=== PATIENT | female | born 1960 | race Caucasian/White ===

== ENCOUNTER 2017-04-16 09:56 | Observation (INO) | payer BC ==
[~2017-04-16] VITALS: Ht 162.6 cm; Wt 72.6 kg
[~2017-04-16 09:56] MED LIST: DARVOCET N 101 UDTAB PO; FLUOXETINE; LISINOPRIL20 MG PO; NORCO 325 MG-7.1 TAB PO; PERCOCET 5/321 UDTAB PO; PRINZIDE 25 MG-1 TAB PO; PROZAC40 MG PO
[2017-04-16] MEDS ORDERED: LIPITOR20 MG PO (10:08)
[2017-04-16] MEDS ORDERED: ATIVAN 0.50.5 MG/TAB PO (10:08)
[2017-04-16] MEDS ORDERED: MOBIC15 MG PO (10:09)
[2017-04-16 11:22] LABS: BASO % 0.7 % (0.0-2.0); EOS # 0.3 (0.0-0.7); EOS % 5.8 % (0-4.0); GRAN % 52.5 % (42.2-75.2); HEMATOCRIT 39.3 % (37.0-47.0); HEMOGLOBIN 13.4 g/dl (12.5-16.0); LYMPH # 1.9 (1.2-3.4); LYMPH % 33.4 % (20.0-51.0); MEAN CELL VOLUME 93 fl (80.0-100.0); MEAN CORPUSCULAR HEMOGLOBIN 32 pg (27.0-31.0); MEAN CORPUSCULAR HGB CONC 34 g/dl (33.0-37.0); MEAN PLATELET VOLUME 10.2 fl (7.4-10.4); MONO # 0.4 (0.1-0.6); MONO % 7.3 % (1.7-9.3); PLATELET COUNT 233 K/mm3 (130-400); RED BLOOD COUNT 4.23 M/mm3 (4.10-5.30); REDCELL DISTRIBUTION WIDTH-CV 12.5 % (11.5-14.5); WHITE BLOOD COUNT 5.7 K/mm3 (4.8-10.8)
[2017-04-16 11:33] LABS: ADJUSTED CALCIUM 9.6 mg/dL (8.4-10.2); ALANINE AMINOTRANSFERASE 36 U/L (9-52); ALBUMIN 4.1 gm/dL (3.5-5.0); ALKALINE PHOSPHATASE 70 U/L (50-136); ANION GAP 9 mmol/L (7-16); BILIRUBIN,TOTAL 1.6 mg/dL (0.0-1.0); BLOOD UREA NITROGEN 19 mg/dL (7-17); CALCIUM 9.7 mg/dL (8.4-10.2); CARBON DIOXIDE 27 mmol/L (22-30); CHLORIDE 104 mmol/L (98-107); CREATININE, serum 0.72 mg/dL (0.52-1.25); GLUCOSE 89 mg/dL (74-106); LIPASE 184 U/L (23-300); POTASSIUM 3.7 mmol/L (3.4-5.0); SODIUM 140 mmol/L (137-145); TOTAL PROTEIN 7.1 gm/dL (6.4-8.2)
[2017-04-16 11:45] LABS: B-TYPE NATRIURETIC PEPTIDE 118 pg/mL (0-125); TROPONIN-I < 0.012 ng/mL (0.000-0.034)
[2017-04-16 15:22] VITALS: BP 154/89; PULSE 61; TEMP 97.5
[2017-04-16 15:24] LABS: CHOLESTEROL 149 mg/dL (120-200); HDL CHOLESTEROL 41 mg/dL; LDL CHOLESTEROL 74 mg/dL; TRIGLYCERIDE 169 mg/dL
[2017-04-16 15:48] VITALS: BP 151/93; PULSE 64; TEMP 97.9
[2017-04-16 19:55] VITALS: BP 142/71; PULSE 71; TEMP 98.2
[2017-04-16 23:25] VITALS: BP 145/70; PULSE 69; TEMP 98.6
[2017-04-17 02:20] VITALS: BP 150/79; PULSE 64; TEMP 97.8
[2017-04-17 07:10] VITALS: BP 150/79; PULSE 64
[2017-04-17 08:05] VITALS: BP 148/84; PULSE 69; TEMP 97.8
[2017-04-17 11:15] VITALS: BP 146/77; PULSE 72; TEMP 98.3
[2017-04-17] MEDS ORDERED: AMBIEN CR 12.12.5 MG PO (14:23)
[2017-04-17] MEDS ORDERED: NITROSTAT0.4 MG/TAB SL (14:56)
== END 2017-04-17 16:40 | disposition home or self-care (01) ==
LOC: COL.ER 09:56 → MEDICAL 13:37
PROVIDERS: Emergency Medicine
DX: R07.89 Other chest pain (principal); I10 Essential (primary) hypertension; E78.5 Hyperlipidemia, unspecified; F32.9 Major depressive disorder, single episode, unspecified; F41.9 Anxiety disorder, unspecified; G47.00 Insomnia, unspecified; M19.90 Unspecified osteoarthritis, unspecified site; F17.210 Nicotine dependence, cigarettes, uncomplicated
CPT/HCPCS: A9502; G0378; J1650; J7030